=== PATIENT | female | born 2005 | race African-American/Black ===

== ENCOUNTER 2024-04-11 20:59 | Emergency (ER) | payer MEDICAID ==
[~2024-04-11] VITALS: Ht 152.4 cm; Wt 72.0 kg
[2024-04-11 21:25] VITALS: TEMP 98.4
[2024-04-11 22:02] LABS: HEMATOCRIT 37.3 % (36.0-48.0); HEMOGLOBIN 12.5 g/dL (12.0-16.0); MEAN CORPUSCULAR HGB CONC 33.4 g/dL (31.0-37.0); MEAN CORPUSCULAR VOLUME 92.8 fL (81.0-99.0); PLATELET 354 x1000/uL (130-400); RED BLOOD CELL COUNT 4.02 mill/uL (4.2-5.4); WHITE BLOOD COUNT 5.1 x1000/uL (4.5-11.0)
[2024-04-11 22:04] LABS: CARBON DIOXIDE 28 mEq/L (21-32); CHLORIDE 108 mEq/L (98-107); POTASSIUM 3.5 mEq/L (3.5-5.1); SODIUM 142 mEq/L (136-145)
[2024-04-11 22:05] LABS: CALCIUM 9.3 mg/dL (8.7-10.4)
[2024-04-11 22:10] LABS: CREATININE 0.8 mg/dL (0.6-1.0); GLUCOSE 53 mg/dL (70-105); UREA NITROGEN BLOOD 7 mg/dL (9-23)
[2024-04-12 03:00] VITALS: BP 110/68; PULSE 69; RESP 17; O2SAT 100
[2024-04-12] MEDS ORDERED: IOHEXOL-300 100 ML BOTTLE ONE (03:28)
== END 2024-04-12 03:02 | disposition home or self-care (01) ==
LOC: ER 20:59
DX: H57.12 Ocular pain, left eye (principal)
CPT/HCPCS: 99284; 80048; 81025; 85027; 36415; 82962; Q9967

== ENCOUNTER 2024-10-27 12:40 | Emergency (ER) | payer MEDICAID ==
[~2024-10-27] VITALS: Ht 157.5 cm; Wt 74.0 kg
[2024-10-27 13:16] VITALS: O2SAT 99
[2024-10-27] MEDS ORDERED: METR-167 MT (15:04)
[2024-10-27 15:32] VITALS: BP 113/57; PULSE 75; RESP 16; TEMP 36.6; O2SAT 100
== END 2024-10-27 15:37 | disposition home or self-care (01) ==
LOC: ER 12:40
DX: B96.89 Other specified bacterial agents as the cause of diseases classified elsewhere (principal); N76.0 Acute vaginitis
CPT/HCPCS: 99283

== ENCOUNTER 2025-03-16 07:57 | Emergency (ER) | payer MEDICAID ==
[~2025-03-16] VITALS: Ht 152.4 cm; Wt 83.4 kg
[~2025-03-16 07:57] MED LIST: METR-167 MT
[2025-03-16 08:14] VITALS: BP 116/68; TEMP 36.9; O2SAT 100
[2025-03-16 08:16] VITALS: PULSE 84; RESP 18; O2SAT 98
[2025-03-16 08:42] LABS: BASOPHILS % 1.3 % (0.0-2.0); EOSINOPHILS % 3.2 % (0.0-5.0); HEMATOCRIT. 38.1 % (36.0-48.0); HEMOGLOBIN. 12.7 g/dL (12.0-16.0); LYMPHOCYTES % 36.3 % (20.0-50.0); MEAN PLATELET VOLUME 7.6 fl (7.4-10.4); MONOCYTES % 10.2 % (2.0-8.0); NEUTROPHILS % 49.0 % (40.0-76.0); PLATELET 355 x1000/uL (130-400); RED BLOOD CELL COUNT 4.28 mill/uL (4.2-5.4); RED CELL DISTRIBUTION WIDTH 13.0 % (11.6-14.6)
[2025-03-16 08:54] LABS: CREATININE 0.9 mg/dL (0.6-1.0); UREA NITROGEN BLOOD 10 mg/dL (9-23)
[2025-03-16 08:56] LABS: HCG SCREEN NEGATIVE
[2025-03-16] MEDS ORDERED: VISCOUS LIDOCAINE 2% 15 ML UDC MM ONE (09:30)
[2025-03-16 11:54] LABS: INFLUENZA TYPE A Presumptive Negative (Pres. Neg.)
[2025-03-16 11:57] LABS: INFLUENZA TYPE B Presumptive Negative (Pres. Neg.)
[2025-03-16 11:58] LABS: RESPIRATORY SYNCYTIAL VIRUS Not Detected (Not Detectd)
== END 2025-03-16 10:20 | disposition home or self-care (01) ==
LOC: ER 07:57
DX: J02.9 Acute pharyngitis, unspecified (principal); Z20.822 Contact with and (suspected) exposure to COVID-19
CPT/HCPCS: 36415; 71045; 80048; 84703; 85025; 87420; 87426; 87804; 93005; 99284